=== PATIENT | female | born 1985 | race Caucasian/White ===

== ENCOUNTER → 2023-11-29 07:55 | Outpatient (REF) | payer OTHER, SELFPAY | LOC: HWRAD 07:55 | PROVIDERS: ATTENDING PHYSICIAN Registered Nurse | DX: Z12.31 Encounter for screening mammogram for malignant neoplasm of breast (principal); K90.0 Celiac disease | CPT/HCPCS: 77063; 77067; 77080 ==

== ENCOUNTER → 2024-05-24 12:32 | Outpatient (REF) | payer OTHER, SELFPAY | LOC: HWRAD 12:32 | PROVIDERS: ATTENDING PHYSICIAN Student in an Organized Health Care Education/Training Program | DX: R10.32 Left lower quadrant pain (principal) | CPT/HCPCS: 74177; Q9967 ==

== ENCOUNTER → 2024-05-28 08:58 | Outpatient (REF) | payer OTHER, SELFPAY | LOC: HWRAD 08:58 | PROVIDERS: ATTENDING PHYSICIAN Urology; FAMILY PHYSICIAN Family Medicine; REFERRING PHYSICIAN Student in an Organized Health Care Education/Training Program | DX: R39.9 Unspecified symptoms and signs involving the genitourinary system (principal); R33.9 Retention of urine, unspecified; N81.6 Rectocele; M62.89 Other specified disorders of muscle; N39.41 Urge incontinence; R10.32 Left lower quadrant pain; R10.2 Pelvic and perineal pain | CPT/HCPCS: 76770; 76830; 76856 ==

== ENCOUNTER → 2024-12-04 08:43 | Outpatient (REF) | payer OTHER, SELFPAY | LOC: WDC 08:43 | PROVIDERS: ATTENDING PHYSICIAN Obstetrics & Gynecology; FAMILY PHYSICIAN Family Medicine | DX: Z12.31 Encounter for screening mammogram for malignant neoplasm of breast (principal) | CPT/HCPCS: 77063; 77067 ==

== ENCOUNTER → 2025-06-02 15:54 | Outpatient (REF) | payer OTHER, SELFPAY | LOC: HWRAD 15:54 | PROVIDERS: ATTENDING PHYSICIAN Student in an Organized Health Care Education/Training Program; FAMILY PHYSICIAN Family Medicine | DX: M35.00 Sjogren syndrome, unspecified (principal); M54.50 Low back pain, unspecified; G89.29 Other chronic pain | CPT/HCPCS: 72202 ==

== ENCOUNTER → 2025-06-17 09:12 | Outpatient (REF) | payer OTHER, SELFPAY | LOC: MRI 3T 09:12 | PROVIDERS: ATTENDING PHYSICIAN Family Medicine | DX: M46.1 Sacroiliitis, not elsewhere classified (principal); M35.00 Sjogren syndrome, unspecified; M54.50 Low back pain, unspecified; G89.29 Other chronic pain | CPT/HCPCS: 72195 ==

== ENCOUNTER → 2025-09-24 12:47 | Outpatient (REF) | payer OTHER, SELFPAY | LOC: WDC 12:47 | PROVIDERS: ATTENDING PHYSICIAN Family Medicine | DX: R92.30 Dense breasts, unspecified (principal) | CPT/HCPCS: 76641 ==

== ENCOUNTER → 2025-10-01 12:06 | Outpatient (REF) | payer OTHER, SELFPAY ==
--- NOTE | 2025-10-01 13:31 | OID.BR.INTR ---
[facility] Breast Navigator - Initial
- -
Date of Contact: 10/01/25
Met with patient. Patient given written information on navigator service available at [facility]. Will follow up as needed per protocol.
== END ==
LOC: WDC 12:06
PROVIDERS: ATTENDING PHYSICIAN Family Medicine
DX: N63.42 Unspecified lump in left breast, subareolar (principal)
CPT/HCPCS: 19083; 88305; 88342; 88360; A4648